=== PATIENT | female | born 1980 ===

== ENCOUNTER 2018-07-23 07:03 | Observation (INO) | payer BC, OTHER ==
[2018-07-23 07:09] VITALS: BMI 33.1
--- NOTE | 2018-07-23 07:46 | ED PDOC ---
HPI: Female Pain Time Seen by Provider: 07/23/18 07:19 Chief Complaint (Provider): Abdominal pain History Per: Patient History/Exam Limitations: no limitations Current Symptoms Are (Timing): Still Present Quality Of Discomfort: Cramping Additional History Per: Patient Additional Complaint(s): 38yo female, with history of rheumatoid arthritis, EGA of 11 weeks, comes to ER reporting abdominal pain. Patient had an ultrasound at another facility, which was indicative of demise; patient was informed to come to ER if pain worsens, prompting ER visit. She reports her last PO intake was midnight last night. Otherwise, no complaints of vaginal bleeding. PMD: Ismael Anirudh Malone Abnormal Vaginal Bleeding: No Past Medical History Reviewed: Historical Data, Nursing Documentation, Vital Signs Vital Signs: Last Vital Signs Temp 98.2 F 07/23/18 07:08 Pulse 82 07/23/18 07:08 Resp 18 07/23/18 07:08 BP 112/74 07/23/18 07:08 Pulse Ox 99 07/23/18 07:08 - Medical History PMH: Rheumatoid Arthritis Denies: Chronic Kidney Disease - Surgical History Surgical History: Appendectomy - Family History Family History: States: Unknown Family Hx - Immunization History Hx Tetanus Toxoid Vaccination: No Hx Influenza Vaccination: No Hx Pneumococcal Vaccination: No - Home Medications Home Medications: Ambulatory Orders Medication Instructions Recorded Ibuprofen [Motrin] 600 mg PO Q6 PRN #10 tab 07/23/18 oxyCODONE/Acetaminophen [Percocet 1 ea PO Q4 PRN #5 tab 07/23/18 5/325 mg Tab] - Allergies Allergies/Adverse Reactions: Allergies Allergy/AdvReac Type Severity Reaction Status Date / Time No Known Allergies Allergy Verified 07/23/18 14:10 Review of Systems ROS Statement: Except As Marked, All Systems Reviewed And Found Negative (as per HPI) Gastrointestinal: Positive for: Abdominal Pain Genitourinary Female: Negative for: Vaginal Bleeding Physical Exam - Reviewed Nursing Documentation Reviewed: Yes Vital Signs Reviewed: Yes - Physical Exam Appears: Positive for: Non-toxic Head Exam: Positive for: ATRAUMATIC, NORMAL INSPECTION, NORMOCEPHALIC Skin: Positive for: Normal Color Eye Exam: Positive for: Normal appearance Cardiovascular/Chest: Positive for: Regular Rate, Rhythm. Negative for: Tachycardia Respiratory: Positive for: Normal Breath Sounds. Negative for: Respiratory Distress Gastrointestinal/Abdominal: Positive for: Soft, Other (fundus below umbilicus). Negative for: Tenderness Back: Positive for: Normal Inspection Extremity: Positive for: Normal ROM. Negative for: Pedal Edema Neurological/Psych: Positive for: Awake, Alert, Oriented - Laboratory Results Result Diagrams: 07/23/18 08:30 07/23/18 08:30 - ECG ECG: Positive for: Interpreted By Me, Viewed By Me ECG Rhythm: Positive for: Normal QRS, Normal ST Segment, Sinus Rhythm Rate: 74 O2 Sat by Pulse Oximetry: 99 (RA) Pulse Ox Interpretation: Normal Medical Decision Making Medical Decision Makin Discussed with Dr. Mejia, who states patient to be admitted under Dr. Calderón for a likely DnC Basic labs, EKG ordered. 0800 EKG reviewed, normal sinus at 74bpm. Scribe Attestation: Documented by Annemarie Kong acting as a scribe for Keven Hardy DO. Provider Scribe Attestation: All medical record entries made by the Scribe were at my direction and personal ly dictated by me. I have reviewed the chart and agree that the record accurately reflects my personal performance of the history, physical exam, medical decision making, and the department course for this patient. I have also personally directed, reviewed, and agree with the discharge instructions and disposition. Disposition - Clinical Impression Clinical Impression: demise - Patient ED Disposition Is Patient to be Admitted: Yes Discussed With : Maritza Mejia - Disposition Disposition Time: 07:40 Condition: STABLE - Pt Status Changed To: Hospital Disposition Of: Observation
[2018-07-23 08:46] LABS: BASO % 0.4 % (0.0-2.0); EOS % 0.9 % (0.0-4.0); HEMOGLOBIN 11.9 g/dL (12.0-16.0); LYMPH # 1.2 K/uL (1.0-4.3); LYMPH % 26.2 % (20.0-40.0); MEAN CELL VOLUME 80.8 fl (81.0-99.0); MEAN CORPUSCULAR HEMOGLOBIN 26.6 pg (27.0-31.0); MEAN CORPUSCULAR HGB CONC 32.9 g/dL (33.0-37.0); MONO # 0.4 K/uL (0.0-0.8); NEUT # 2.9 K/uL (1.8-7.0); NEUT % 64.5 % (50.0-75.0); NRBC % 0.1 % (0.0-0.0); RBC 4.49 Mil/uL (3.80-5.20); RED CELL DISTRIBUTION WIDTH 15.2 % (11.5-14.5); WHITE BLOOD COUNT 4.5 K/uL (4.8-10.8)
[2018-07-23 08:52] LABS: BLOOD UREA NITROGEN 11 mg/dl (7-17); CALCIUM 9.2 mg/dL (8.4-10.2); GFR NON-AFRICAN AMERICAN > 60
--- NOTE | 2018-07-23 08:56 | CARD ---
APPROVED REPORT Date of service: 07/23/2018 EKG Measurement Heart [id number] <Conclusion> Normal sinus rhythm Normal ECG
--- NOTE | 2018-07-23 09:25 | CP.SDSHP ---
Same Day Surgery H & P - History Proposed Procedure: Suction D&C Pre-Op Diagnosis: Missed of conjoined twins - Previous Medical/Surgical History Previous Surgical History: Previous x 3 - Allergies Allergies: Allergies No Known Allergies Allergy (Verified 11/05/17 16:30) - Physical Exam Vital Signs: Vital Signs 07/23/18 07/23/18 07/23/18 07:08 08:13 08:57 Temperature 98.2 F Pulse Rate 82 74 74 Respiratory 18 Rate Blood Pressure 112/74 O2 Sat by Pulse 99 99 Oximetry Mental Status: Alert & Oriented x3 Neuro: WNL Heart: WNL Lungs: WNL GI: WNL - {Optional Preform as Required} Breast: WNL Abdomen: WNL Rectal: WNL PREANALYTICS TEAM LEAD: WNL - Impression Pt. Evaluated Today:Candidate for Anesthesia & Procedure: Yes - Date & Time Date: 07/23/18 Time: 09:25 Short Stay Discharge - Short Stay Discharge Admitting Diagnosis/Reason for Visit: DEMISE Disposition: HOME/ ROUTINE Follow-up: in 2 wks Progress Note/Discharge Note with Instructions: Pt to be discharged when meets floor criteria
[2018-07-23] MEDS ORDERED: Lactated Ringer's 1,000 ML IV SCH (09:30)
[2018-07-23] MEDS ORDERED: OXYTOCIN/0.9 % NS 20 UNIT/1,000 ML BAG IV SCH (09:30)
[2018-07-23] MEDS ORDERED: Silver Nitrate Topical - Stick ONE (10:04)
[2018-07-23] MEDS ORDERED: Strong Iodine Topical Sol. 5%-10% ONE (10:04)
[2018-07-23] MEDS ORDERED: Ferric Subsulfate Sol(60 mL) ONE (10:05)
[2018-07-23] MEDS ORDERED: Oxytocin 10 Units/ml Inj ONE (10:10)
[2018-07-23] MEDS ORDERED: Rocuronium 10 mg/ml (5 ml) ONE (10:13)
[2018-07-23] MEDS ORDERED: Propofol 10 mg/ml Inj (20 ML) ONE (10:13)
[2018-07-23] MEDS ORDERED: ePHEDrine 50 mg/ml Inj ONE (10:13)
[2018-07-23] MEDS ORDERED: Succinylcholine 200 mg/10 ml Inj IV ONE (10:13)
[2018-07-23] MEDS ORDERED: Lactated Ringer's 1,000 ML IV ONE ×3 (10:15→14:25)
[2018-07-23] MEDS ORDERED: Sevoflurane - Inhalation Anesthetic Liq (250 ml) ONE (10:46)
[2018-07-23] MEDS ORDERED: Sodium Chloride 0.9% 1,000 ML IV ONE (10:57)
[2018-07-23] MEDS ORDERED: Oxytocin 10 Units/ml Inj IM ONE (11:00)
[2018-07-23] MEDS ORDERED: Oxycodone/Acetaminophen 5/325 mg Tab PO PRN (11:16)
[2018-07-23] MEDS: HYDROmorphone 0.5 mg/0.5 ml ISec IVP PRN ×7 (11:29→12:30)
[2018-07-23] MEDS ORDERED: HYDROmorphone 0.5 mg/0.5 ml ISec ONE (11:29)
[2018-07-23] MEDS ORDERED: DiphenhydrAMINE 50 mg/ml Inj IVP ONE (13:45)
[2018-07-23] MEDS ORDERED: DiphenhydrAMINE 50 mg/ml Inj ONE (13:45)
[2018-07-23 14:42] VITALS: RESP 18
[2018-07-23 18:09] VITALS: O2SAT 99
[2018-07-23] MEDS ORDERED: Oxycodone/Acetaminophen 5/325 mg Tab PO ONE (18:40)
[2018-07-23 18:47] VITALS: BP 100/78; PULSE 68; TEMP 97.2
--- NOTE | 2018-07-23 19:57 | OP ---
PROCEDURE DATE: 07/23/2018 PROCEDURE: Suction dilatation and curettage for missed of conjoined twins. SURGEON: Jayne Palacio MD PSYCH RN: Dr. Elissa Jefferson TYPE OF ANESTHESIA: General anesthesia. ANESTHESIA ADMINISTERED BY: Vik Crockett MD INTRAVENOUS FLUID INTAKE: 600 mL. URINE OUTPUT: 50 mL, clear. ESTIMATED BLOOD LOSS: 200 mL. SPECIMEN: Products of conception. COMPLICATIONS: None. FINDINGS: 10-week size anteverted uterus, cervix closed with moderate amount of products of conception and bleeding. CONDITION: Stable. INDICATION FOR PROCEDURE: The patient is a 38-year-old G5, P3-0-1-3 with a confirmed missed of conjoined twins at about 8 weeks. The patient was scheduled for a periop D and C, was unable to and subsequently presented to the ER on this morning. The patient was advised the risks and benefits of the procedure including risks of bleeding, infection, perforation and the patient verbalized understanding and signed informed consent. The patient's hemoglobin on admission was about 11.2. DESCRIPTION OF PROCEDURE: The patient was taken to the OR where general anesthesia was administered without difficulty. The patient was placed in dorsal lithotomy position with candy-cane stirrups. Examination under anesthesia revealed a 10-week size anteverted uterus with the cervix closed. The patient was prepped and draped in the normal sterile fashion. A weighted speculum was inserted in the posterior aspect of the vagina. A single tooth tenaculum was used to grasp the anterior lip of the cervix. A red rubber tip catheter was used to drain her bladder. Clear urine was noted. The uterus was carefully sounded to 9 cm. The cervix was dilated with the Alexis and Hegar dilators. We were able to dilate up to 9 and a 9 mm curved suction curette was advanced into the uterine fundus. The suction of the cavity was then started. The products of conception were evacuated with the curette rotating in the outward movement. Suction curette was reintroduced multiple times. Under ultrasound guidance, we confirmed that all products of conception were evacuated from the uterus. The tenaculum was removed from the cervix. We used UR needle and 0-Vicryl in order to place two hemostatic knots at the one of the tenaculum site. The patient had an EBL of about 200 mL and was hemostatic at the end of the procedure. All instruments and sponge counts were correct x2. The patient was awakened from general anesthesia and then taken to the recovery room in stable condition. Specimen was sent for pathology and chromosomal testing. The patient will go home after recovery from anesthesia and meeting all the criteria for discharge. She was given a script for 5 tabs of Percocet and Motrin and instructions to follow up as an outpatient in 2 weeks. There were no other complications. Jayne Palacio MD
== END 2018-07-23 19:10 | disposition home or self-care (01) ==
LOC: H.ER 07:03 → H.ERHOLD 07:42
PROVIDERS: ADMIT Obstetrics & Gynecology; ATTEND Obstetrics & Gynecology
DX: O02.1 Missed abortion (principal); Q00-Q99 Congenital malformations, deformations and chromosomal abnormalities; Z3A.11 11 weeks gestation of pregnancy; M06.9 Rheumatoid arthritis, unspecified
CPT/HCPCS: 59820; 80048; 81025; 85025; 86850; 86900; 86920; 88305; 93005; 99284; G0378; J0330; J1170; J1200; J1885; J2001; J2210; J2405; J2590; J2704; J3010; J7030; J7120